=== PATIENT | female | born 1990 | race African-American/Black ===

== ENCOUNTER 2020-01-31 21:11 | Emergency (ER) | payer MEDICAID ==
[~2020-01-31] VITALS: Ht 180.3 cm; Wt 181.8 kg
[2020-01-31 21:26] VITALS: Ht 180.3 cm; Wt 181.8 kg
[2020-01-31] MEDS ORDERED: INDERAL 40 MG T40 MG (21:27)
[2020-01-31] MEDS ORDERED: VITAMINS (21:28)
[2020-01-31] MEDS ORDERED: NAUSEA MEDS (21:28)
[2020-01-31 22:10] LABS: CALC OSMOLALITY 270 mosm/kg (275-300); CARBON DIOXIDE 23.9 mmol/L (21.0-32.0); CHLORIDE - SERUM 104 mmol/L (98-107); CREATININE - SERUM 0.7 mg/dL (0.6-1.3); GLUCOSE 112 mg/dL (74-106); POTASSIUM - SERUM 3.8 mmol/L (3.5-5.1); SODIUM 136 mmol/L (136-145); UREA NITROGEN 6 mg/dL (7-18); eGFR NON AFRICAN AMERICAN > 90 mL/min (90-120)
[2020-01-31 22:35] LABS: HEMOGLOBIN 12.5 g/dL (12-16); LYMPHOCYTES 35.4 % (15-50); MCH 29.1 pg (26.0-34.0); MCHC 32.9 g/dL (31.0-37.0); MCV 88.4 fL (80.0-100.0); MEAN PLATELET VOLUME 8.6 fL (7.4-10.4); NEUTROPHILS 58.9 % (40-80); PLATELET COUNT 218 10x3/uL (130-400); WBC 7.2 10x3/uL (4.8-10.8)
[2020-01-31 22:37] LABS: ALBUMIN 3.4 g/dL (3.4-5.0); ALKALINE PHOSPHATASE 61 U/L (30-120); ALT (SGPT) 24 U/L (10-68); BILIRUBIN - TOTAL 0.35 mg/dL (0.2-1.3); HCG - QUANTITATIVE (MATERNAL) 15520 mIU/mL; PROTEIN - SERUM 7.4 g/dL (6.4-8.2)
[2020-01-31 23:31] LABS: BILIRUBIN NEGATIVE (NEGATIVE); GLUCOSE NEGATIVE (NEGATIVE); KETONE NEGATIVE (NEGATIVE); NITRITE NEGATIVE (NEGATIVE); SPECIFIC GRAVITY 1.015 (1.005-1.020); UROBILINOGEN NORMAL (NORMAL)
[2020-02-01 00:31] VITALS: BP 164/100
== END 2020-02-01 00:31 | disposition home or self-care (01) ==
LOC: D.ER 21:11
PROVIDERS: Family Medicine
DX: O09.91 Supervision of high risk pregnancy, unspecified, first trimester (principal); Z3A.01 Less than 8 weeks gestation of pregnancy; O16.1 Unspecified maternal hypertension, first trimester; O20.9 Hemorrhage in early pregnancy, unspecified

== ENCOUNTER 2021-04-09 10:38 | Emergency (ER) | payer BC ==
[~2021-04-09] VITALS: Ht 180.3 cm; Wt 163.6 kg
[~2021-04-09 10:38] MED LIST: INDERAL 40 MG T40 MG; NAUSEA MEDS; VITAMINS
[2021-04-09 10:54] VITALS: Ht 180.3 cm; Wt 163.6 kg
[2021-04-09 11:59] LABS: BASOPHILS 0.4 % (0-2); EOSINOPHILS 1.1 % (0-7); HEMATOCRIT 44.2 % (36.0-48.0); HEMOGLOBIN 14.4 g/dL (12-16); LYMPHOCYTES 32.4 % (15-50); MCH 29.3 pg (26.0-34.0); MCHC 32.6 g/dL (31.0-37.0); MCV 89.9 fL (80.0-100.0); MONOCYTES 6.2 % (2-11); NEUTROPHILS 59.9 % (40-80); RBC 4.92 10x6/uL (4.00-5.40); RDW 14.7 % (11.5-14.5); WBC 7.9 10x3/uL (4.8-10.8)
[2021-04-09 12:00] LABS: PLATELET COUNT 326 10x3/uL (130-400)
[2021-04-09 13:07] LABS: ALBUMIN 4.4 g/dL (3.4-5.0); ALKALINE PHOSPHATASE 67 U/L (30-120); ALT (SGPT) 27 U/L (10-68); BILIRUBIN - TOTAL 0.32 mg/dL (0.2-1.3); CALC OSMOLALITY 276 mosm/kg (275-300); CALCIUM 9.6 mg/dL (8.5-10.1); CARBON DIOXIDE 26.4 mmol/L (21.0-32.0); CHLORIDE - SERUM 98 mmol/L (98-107); CKMB 1.7 U/L (0.0-3.6); CREATINE KINASE 514 UL (21-215); CREATININE - SERUM 1.1 mg/dL (0.6-1.3); GLUCOSE 75 mg/dL (74-106); PROTEIN - SERUM 9.5 g/dL (6.4-8.2); SODIUM 138 mmol/L (136-145); UREA NITROGEN 17 mg/dL (7-18); eGFR NON AFRICAN AMERICAN 61 mL/min (90-120)
[2021-04-09 13:08] LABS: POTASSIUM - SERUM 2.8 mmol/L (3.5-5.1); TROPONIN-I < 0.017 ng/mL (0.000-0.060)
[2021-04-09 13:53] VITALS: BP 176/97
== END 2021-04-09 13:53 | disposition home or self-care (01) ==
LOC: D.ER 10:38
PROVIDERS: Family Medicine
DX: I10 Essential (primary) hypertension (principal); E66.01 Morbid (severe) obesity due to excess calories; R42 Dizziness and giddiness; M79.605 Pain in left leg; M79.604 Pain in right leg